=== PATIENT | male | born 1965 ===

== ENCOUNTER 2020-11-24 06:49 | Inpatient (IN) ==
--- NOTE | 2020-11-09 13:32 | PAT Medication Instructions ---
Medication Instructions Date of Service November 09, 2020 Home Medications Medical Thc 1 dose INHALATION UD albuterol sulfate 1 inh INHALATION QID PRN atorvastatin 40 mg PO HS bupropion HCl 200 mg PO QAM famotidine [Pepcid] 20 mg PO BID fluticasone propion-salmeterol [Advair Diskus] 1 inh INHALATION QAM hydroxyzine HCl [Atarax] 50 mg PO DAILY PRN lisinopril-hydrochlorothiazide 1 tab PO QAM magnesium oxide 400 mg PO QAM metoprolol tartrate 25 mg PO BID pantoprazole [Protonix] 40 mg PO BID potassium chloride 20 meq PO QAM ranolazine [Ranexa] 500 mg PO BID sertraline [Zoloft] 100 mg PO QAM tiotropium bromide [Spiriva with HandiHaler] 1 cap INHALATION QAM DO NOT take the morning of surgery hydroxyzine HCl [Atarax] 50 mg PO DAILY PRN lisinopril-hydrochlorothiazide 1 tab PO QAM magnesium oxide 400 mg PO QAM potassium chloride 20 meq PO QAM Medical Thc 1 dose INHALATION UD Take morning of surgery With a small sip of water, OTHERWISE NOTHING TO EAT OR DRINK AFTER MIDNIGHT: albuterol sulfate 1 inh INHALATION QID PRN (use if needed; please bring rescue inhaler with you to hospital day of surgery if possible) bupropion HCl 200 mg PO QAM famotidine [Pepcid] 20 mg PO BID fluticasone propion-salmeterol [Advair Diskus] 1 inh INHALATION QAM metoprolol tartrate 25 mg PO BID pantoprazole [Protonix] 40 mg PO BID ranolazine [Ranexa] 500 mg PO BID sertraline [Zoloft] 100 mg PO QAM tiotropium bromide [Spiriva with HandiHaler] 1 cap INHALATION QAM Take evening before surgery albuterol sulfate 1 inh INHALATION QID PRN (if needed) atorvastatin 40 mg PO HS famotidine [Pepcid] 20 mg PO BID hydroxyzine HCl [Atarax] 50 mg PO DAILY PRN (if needed) metoprolol tartrate 25 mg PO BID pantoprazole [Protonix] 40 mg PO BID ranolazine [Ranexa] 500 mg PO BID Other Notes If you have any questions please call us at [phone] or [phone] or [phone] or [phone]
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
[~2020-11-24 06:49] MED LIST: ACETAMINOPHEN 500 MG TAB PO SCH; CeleBREX 200 MG CAP PO SCH; GABAPENTIN 600 MG DOSE PO SCH; LR 15ML/HR IV SCH; ceFAZolin 2000MG 2,000 MG/15 ML SYR IV SCH
[2020-11-24] MEDS ORDERED: NEOSTIGMINE METHYLSULFATE 1 MG/ML 10ML VIAL ONE (07:05)
[2020-11-24] MEDS ORDERED: MIDAZOLAM HCL 1 MG/ML 2ML VIAL ONE (07:05)
[2020-11-24] MEDS ORDERED: fentaNYL citrate 100 MCG/2 ML VIAL ONE (07:05)
[2020-11-24] MEDS ORDERED: LIDOCAINE 2% 2 ML VIAL/AMP(20MG/ML) INFIL ONE (07:05)
[2020-11-24] MEDS ORDERED: GLYCOPYRROLATE 0.2 MG/ML VIAL ONE (07:05)
[2020-11-24] MEDS ORDERED: PROPOFOL IV EMULSION 10 MG/ML 20 ML VIAL IV ONE (07:05)
[2020-11-24] MEDS ORDERED: ONDANSETRON INJ 2 MG/ML 2 ML VIAL ONE (07:05)
[2020-11-24] MEDS ORDERED: DEXAMETHASONE SOD INJ 4 MG/ML VIAL ONE (07:05)
[2020-11-24] MEDS ORDERED: SUGAMMADEX SODIUM 200 MG/2 ML VIAL IV ONE (07:14)
[2020-11-24] MEDS ORDERED: BUPIVACAINE/EPINEPHRINE 0.5% MPF 1:200,000 30 ML VIAL ONE (07:16)
--- NOTE | 2020-11-24 07:32 | History & Physical Bridge Note ---
Date of Service November 24, 2020 History & Physical Bridge Note I have examined the patient, reviewed the History & Physical and in the interval since the performance of the History & Physical I have noted the following changes of clinical significance: no changes noted
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
[2020-11-24] MEDS ORDERED: HYDROmorphone INJ 2 MG/ML SYR/VIAL IV PRN (07:46)
[2020-11-24] MEDS ORDERED: PROMETHAZINE HCL 12.5 MG in SODIUM CHLORIDE 0.9% 50 ML IV PRN ×2 (07:46→12:15)
[2020-11-24] MEDS ORDERED: ATROPINE SULFATE 0.1 MG/ML 10ML SYR IV PRN (07:46)
[2020-11-24] MEDS ORDERED: ePHEDrine sulfate 50 MG/ML AMP IV PRN (07:46)
[2020-11-24] MEDS ORDERED: ONDANSETRON INJ 2 MG/ML 2 ML VIAL IV PRN ×2 (07:46→12:15)
[2020-11-24] MEDS ORDERED: HYDROmorphone INJ 2 MG/ML SYR/VIAL ONE (08:13)
[2020-11-24] MEDS ORDERED: ePHEDrine sulfate 50 MG/ML SYR ONE (09:15)
[2020-11-24] MEDS ORDERED: ALBUMIN HUMAN 5% 12.5 GM/250 ML VIAL IV ONE (09:15)
[2020-11-24] MEDS ORDERED: FLOSEAL HEMOSTATIC MATRIX 10ML TOP ONE (10:35)
--- NOTE | 2020-11-24 10:45 | Operative Report ---
Post Operative Report Pre & Post Diagnosis Operation Date: 11/24/20 07:30 Pre-Op Diagnosis: Neurogenic Claudication due to Lumbar Spinal Stenosis Post-Op Diagnosis: Neurogenic Claudication due to Lumbar Spinal Stenosis I identified the patient and participated in the time-out.: Yes Procedure Operation Date: 11/24/20 07:30 Actual Procedures #1 lumbar decompression with bilateral medial facetectomies and foraminotomies L2-3, L3-4, L4-5 L5-S1. #2 posterior spinal fusion L2-3, L3-4, L4-5 and L5-S1. #3 placement posterior segmental instrumentation L2-S1 including a cross-link. #4 interbody fusion L4-L5. #5 placement peek cage 11 x 26 mm at L4-5 per #6 placement locally harvested morselized autograft in the posterior gutters. #7 placement of infuse collagen sponge, master graft in the posterior lateral gutters and I factor in the interbody space. Surgeon Silvio Joseph, DO Regulatory Affairs Portfolio Leader Monika Voss Estimated Blood Loss 1,150 Findings See Below Patient had an EBL of well over 600 cc creating significant technical difficulty throughout our decompression as he did stop far from severe spinal stenosis and multiple adhesions to the dura. This did at least 50% increase to the operative time. Specimens None Indications This is a 55 male who presents with above-mentioned diagnosis after failing course of nonoperative care is here for the above-mentioned procedure. Description of Procedure Patient met with identified informed consent obtained. Patient was then taken to the operative suite underwent ablation placed in a prone position the [place] table top Wilver frame. All bony prominences well-padded eyes inspected to ensure no external pressure placed upon the. This point the lumbar spine was prepped and draped in a sterile fashion. Sharp dissection with the assistance of Bovie cautery performed down to and exposing the lamina transverse processes of L2-L3-L4 L5 and sacral ala bilaterally. From caudal to cephalad fashion complete laminectomy of L5 L4 L3 and 2 was performed including bilateral medial facetectomies and foraminotomies addressing severe spinal stenosis. Pedicle screws were then placed in L2 L3-L4-L5 and S1 levels bilaterally with assistance of fluoroscopy the purposes mar yjane placed. By way of a transforaminal portion left complete discectomy of L4-L5 was performed endplates curetted to subcortical being bone and an 11 x 26 mm peek cage filled with I factor tapped in position. The rods were then locked in final position bilaterally. A cross-link locked into position bilaterally. The transverse processes of L2 L3-L4-L5 and sacral ala burred to subcortical bleeding bone. Infuse collagen sponge master graft local autograft was placed in the posterior gutters. 15 round ELIF drain inserted. The incision was then closed with 1 Vicryl to fascia 2-0 Vicryl subcutaneously and 4 Monocryl for final skin closure. Steri-Strip sterile dressings placed. Patient will continue PACU stable condition. Please note spinal cord monitoring was utilized at the procedure no changes noted. Lastly Monika Voss was present at the entire surgery involved the patient positioning complex portions of the surgery and final skin closure. I attest to the content of the Intraoperative Record and any orders documented therein. Any exceptions are noted below.
[2020-11-24] MEDS ORDERED: ALBUTEROL HFA INHALER 8.5 GM ONE (10:49)
[2020-11-24] MEDS ORDERED: ROCURONIUM BROMIDE 10 MG/ML 5 ML VIAL IV ONE (10:50)
--- NOTE | 2020-11-24 11:14 | Fluoroscopy Report ---
FL lumbar spine 2-3V CLINICAL HISTORY: L2-S1 Decompression/Fusion COMPARISON STUDY: None FLUOROSCOPY TIME: 32 seconds. NUMBER OF FLUOROSCOPIC IMAGES: 4 FINDINGS: Intraoperative fluoroscopy images presented for review shows multiple metallic screws and fixating pl ates within within L2-S1 level. Disc spacer is seen at L4-L5 level. IMPRESSION: As above ACT 112: Negative or not required by law. The above report was generated using voice recognition software. It may contain grammatical, syntax o r spelling errors. Electronically signed by: Tarah Barber DO 11/24/2020 11:12 AM
[2020-11-24] MEDS: fentaNYL citrate 100 MCG/2 ML VIAL IV PRN ×4 (11:16→11:31)
[2020-11-24] MEDS ORDERED: DO NOT ADMINISTER FLU VACCINE PRN (12:15)
[2020-11-24] MEDS ORDERED: LORazepam 0.5 MG TAB PO PRN (12:15)
[2020-11-24] MEDS ORDERED: MAGNESIUM HYDROXIDE SUSP 30 ML UDC PO PRN (12:15)
[2020-11-24] MEDS ORDERED: NALOXONE HCL 0.4 MG/1 ML VIAL/CARP IV PRN (12:15)
[2020-11-24] MEDS ORDERED: SOD PHOSPHATE/SOD BIPHOSPHATE ENEMA 132 ML BTL PR PRN (12:15)
[2020-11-24] MEDS ORDERED: hydrOXYzine HCl 25 MG TAB PO PRN ×2 (12:15)
[2020-11-24] MEDS ORDERED: LORazepam 0.5 MG/1 ML VIAL IV PRN (12:15)
[2020-11-24] MEDS ORDERED: ALUMINUM/MAGNESIUM SUSP 30 ML UDC PO PRN (12:15)
[2020-11-24] MEDS ORDERED: diphenhydrAMINE Capsule 25 MG CAP PO PRN (12:15)
[2020-11-24] MEDS ORDERED: DO NOT ADMINISTER PNEUMOCOCCAL VACCINE PRN (12:15)
[2020-11-24] MEDS ORDERED: ONDANSETRON 4 MG OD TAB PO PRN (12:15)
[2020-11-24] MEDS ORDERED: FAMOTIDINE 20 MG TAB PO PRN (12:15)
[2020-11-24] MEDS ORDERED: METOCLOPRAMIDE HCL INJ 5 MG/ML 2 ML VIAL IV PRN (12:15)
[2020-11-24] MEDS ORDERED: traMADol HCL 50 MG TABLET PO PRN (12:15)
[2020-11-24] MEDS ORDERED: ACETAMINOPHEN 1,000 MG/100 ML VIAL IV PRN (12:15)
[2020-11-24] MEDS ORDERED: ALBUTEROL HFA 8 GM INHALER INH PRN (12:15)
[2020-11-24] MEDS ORDERED: HYDROmorphone INJ 0.5 MG/0.5 ML SYR IV PRN (12:15)
--- NOTE | 2020-11-24 12:33 | Anesthesiology Progress Note ---
Date of Service November 24, 2020 Anesthesia Post Procedure Vital Signs Vital Signs: Temp Pulse Pulse Resp BP Pulse Ox 11/24/20 11:45 36.1 C L 68 18 98/58 L 95 11/24/20 11:35 63 17 117/69 100 11/24/20 11:25 58 L 20 107/70 99 11/24/20 11:15 64 20 117/73 100 11/24/20 11:05 36.1 C L 68 16 135/83 100 11/24/20 07:10 36.9 C 66 18 168/97 H 97 Pain Intensity Left Leg: Pain Intensity: 8 Back: Pain Intensity: 8 Transfer of Care Handoff Completed per policy Notes Mental Status: alert / awake / arousable and participated in evaluation Patient Amnestic to Procedure: Yes Nausea / Vomiting: adequately controlled Pain: adequately controlled Airway Patency, RR, SpO2: stable & adequate BP & HR: stable & adequate Hydration State: stable & adequate Anesthetic Complications: no major complications apparent and Pt Satisfied with anesthetic care
[2020-11-24] MEDS ORDERED: MEDICAL MARIJUANA INH SCH (13:15)
[2020-11-24] MEDS: SODIUM CHLORIDE 0.9% 1000ML 1,000 ML IV SCH ×2 (13:23→23:07)
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
[2020-11-24] MEDS: ceFAZolin 2000MG 2,000 MG/15 ML SYR IV SCH ×2 (16:48→23:07)
[2020-11-24] MEDS: NICOTINE 21 MG/24 HR TDSY TD SCH (16:48)
[2020-11-24] MEDS: oxyCODONE HCL IR 5 MG TAB (IMMEDIATE RELEASE) PO PRN (16:58)
[2020-11-24 16:59] LABS: Hematocrit (blood only) 27.6 % (42-52); Hemoglobin 9.3 g/dL (14.0-18.0); Mean Corpuscular Hemoglobin 33.1 pg (25-34); Mean Corpuscular Hgb Conc 33.7 g/dL (32-36); Mean Corpuscular Volume 98.2 fL (80-100); Mean Platelet Volume 8.3 fL (7.4-10.4); Platelet Count 173 K/uL (130-400); RDW Coefficient of Variation 15.4 % (11.5-14.5); RDW Standard Deviation 54.1 fL (36.4-46.3); Red Blood Count 2.81 M/uL (4.7-6.1); White Blood Count 8.63 K/uL (4.8-10.8)
[2020-11-24] MEDS: HYDROmorphone INJ 1 MG/ML SYRINGE IV PRN (19:59)
[2020-11-24] MEDS: DOCUSATE SODIUM/SENNA 50/8.6MG TAB PO SCH (21:27)
[2020-11-24] MEDS: ATORVASTATIN 40 MG TAB PO SCH (21:27)
[2020-11-24] MEDS: FAMOTIDINE 20 MG TAB PO SCH (21:27)
[2020-11-24] MEDS: PANTOprazole 40 MG TAB PO SCH (21:28)
[2020-11-24] MEDS: RANOLAZINE 500 MG ER TAB PO SCH (21:29)
[2020-11-24] MEDS: METOPROLOL TARTRATE 25 MG TAB PO SCH (21:29)
[2020-11-24] MEDS: ACETAMINOPHEN 500 MG TAB PO PRN (21:32)
[2020-11-25] MEDS: oxyCODONE HCL IR 5 MG TAB (IMMEDIATE RELEASE) PO PRN ×4 (03:14→20:41)
[2020-11-25] MEDS: POLYETHYLENE (MIRALAX) 17 GM PACK PO SCH ×4 (05:22→23:06)
[2020-11-25] MEDS: HYDROmorphone INJ 1 MG/ML SYRINGE IV PRN ×4 (05:22→19:19)
[2020-11-25 06:43] LABS: Hematocrit (blood only) 25.1 % (42-52); Hemoglobin 8.5 g/dL (14.0-18.0); Immature Granulocytes # (auto) 0.03 K/uL (0.00-0.02); Immature Granulocytes % (auto) 0.3 %; Lymphocytes # (auto) 0.55 K/uL (1.2-3.4); Lymphocytes % (auto) 5.2 %; Mean Corpuscular Hemoglobin 33.3 pg (25-34); Mean Corpuscular Hgb Conc 33.9 g/dL (32-36); Mean Corpuscular Volume 98.4 fL (80-100); Mean Platelet Volume 8.6 fL (7.4-10.4); Monocytes # (auto) 0.77 K/uL (0.11-0.59); Monocytes % (auto) 7.3 %; Neutrophils # (auto) 9.13 K/uL (1.4-6.5); Neutrophils % (auto) 87.2 %; Platelet Count 211 K/uL (130-400); RDW Coefficient of Variation 15.4 % (11.5-14.5); RDW Standard Deviation 55.3 fL (36.4-46.3); Red Blood Count 2.55 M/uL (4.7-6.1); White Blood Count 10.48 K/uL (4.8-10.8)
[2020-11-25 07:26] LABS: BUN Creatinine Ratio 12.1 (10-20); Calcium 7.8 mg/dl (8.5-10.1); Creatinine Clr Calc Pharmacy 76.1 ml/min; Est GFR (African American) 82.3 ml/min; Potassium 4.3 mmol/L (3.5-5.1)
[2020-11-25] MEDS: ACETAMINOPHEN 500 MG TAB PO PRN (07:35)
--- NOTE | 2020-11-25 08:51 | Hospitalist Progress Note ---
Date of Service November 25, 2020 Assessment & Plan (1) Neurogenic claudication due to lumbar spinal stenosis: Status post L2-S1 lumbar decompression fusion by Dr. Joseph, POD #1 EBL 1150 mL, ELIF drain 715 mL Tolerated procedure well Pain/wound management per orthopedics Activity and therapy as prescribed orthopedics Encourage incentive spirometry Monitor hemoglobin with significant blood loss, preop 11.8 Acute Blood loss anemia on chronic anemia anticipated in setting of surgery hgb 11.8 --> 8.5 given hx of CAD would transfuse if hgb < 8 or becomes symptomatic repeat hgb this afternoon @ 1600 as ELIF drain still putting out decent output Hypocalcemia on bmp ca 7.8, need albumin to determine correction will add albumin and ionized ca to 1600 labs Elevated fasting glucose likely in setting of post op state pre op bsg WNL add a1c in a.m. (2) CAD (coronary artery disease): No chest pain or shortness of breath, follows up with cardiology History of left circumflex and RADHA in 2012 On metoprolol, Ranexa, statin, lisinopril Per patient's cardiology notes he is also to be on aspirin, patient currently states he is not taking aspirin due to pill burden recommend resuming ASA when okay with Dr. Joseph (3) Chronic anemia: hgb 11.8 likely 2/2 chronic disease acute blood loss as above (4) Hypertension: BP on lower side continue hold lisinopril/HCTZ continue metoprolol as parameters allow monitor closely (5) Chronic obstructive pulmonary disease: tobacco abuse continue advair ( breo substituted) encourage incentive spirometry nicotine patch ordered (6) Sleep apnea: CPAP @ HS, [id number], pt brought home cpap Dispo: per primary PCP: Dr. Partida FULL CODE Pt was seen and examined in collaboration with Dr. Jose, please see addendum Thank you for this consultation. We will follow the patient with you during their hospital stay. You can reach a member of the [facility] Hospitalist Team 12/12 via hospitalist role on tiger text. Admission and Anticipated Discharge Date Admission Date: November 24, 2020 Supervising Physician Co-Signing Physician Notes Attending addendum The patient was seen and examined in medical floor He complains to pain at the back and has more drainage in the ELIF drain Denies any chest pain and/or palpitation, denies any shortness of breath On examination Sitting on a chair without any apparent distress Hemodynamically stable Chest-clear to auscultate bilaterally Heart-S1-S2, regular Abdomen-benign Extremities-trace edema bilaterally His labs reviewed Has acute blood loss anemia secondary to surgery We will monitor H&H and advised blood transfusion if hemoglobin drops below 8 given CAD status Agree with assessment and plan as outlined above by VALERIE Barnett Dr Subjective Patient was seen and examined in room 311. Follow-up lumbar decompression fusion and chronic anemia. "I am sore." Complains of incisional tenderness. Also complains of numbness to tips of toes. He denies any lightheadedness, dizziness, chest pain, shortness breath, cough, nausea, vomiting, abdominal pain. He has not yet passed flatus. Continues to have Adames catheter in place. He was up and sitting in chair for few hours last evening. Appetite is well. Review of Systems Review of Systems: All systems reviewed & are unremarkable except as noted in HPI & below Physical Exam Physical Exam: Gen: WD/WN, NAD, A&O x3 HEENT: Normocephalic, atraumatic, conjunctivae moist, sclerae anicteric, mucous membranes moist. Lung: Clear to Auscultation bilaterally, no wheezes/rales/rhonchi Heart: Regular rate, regular rhythm, no murmurs, rubs, or gallops Abdomen: Soft, NT, ND +BS x 4 Extremities: No edema, SCD/teds in place, lumbar dressing CDI, ELIF drain with serosanguineous drainage Skin: Warm, no rash, negative turgor. : Adames catheter with clear yellow urine Results & Data Results & Data ([facility]) Vital Signs (Past 12 Hours) Vital Signs Temp Pulse Pulse Resp BP BP Pulse Ox 11/25/20 07:40 36.4 C L 71 16 126/75 96 11/25/20 05:15 116/62 11/25/20 02:38 36.4 C L 67 16 102/65 93 11/24/20 22:50 36.7 C 56 L 16 94/60 L 94/47 L 93 11/24/20 21:21 59 L 96/55 L
[2020-11-25] MEDS ORDERED: LISINOPRIL/HCTZ 10/12.5MG TAB PO SCH ×2 (09:00)
[2020-11-25] MEDS: FAMOTIDINE 20 MG TAB PO SCH ×2 (09:07→20:41)
[2020-11-25] MEDS: MAGNESIUM OXIDE 400 MG TAB PO SCH (09:07)
[2020-11-25] MEDS: METOPROLOL TARTRATE 25 MG TAB PO SCH ×2 (09:07→23:06)
[2020-11-25] MEDS: SERTRALINE HCL 100 MG TABLET PO SCH (09:07)
[2020-11-25] MEDS: RANOLAZINE 500 MG ER TAB PO SCH ×2 (09:07→20:41)
[2020-11-25] MEDS: PANTOprazole 40 MG TAB PO SCH ×2 (09:07→20:41)
[2020-11-25] MEDS: POTASSIUM CHLORIDE CRTAB 20 MEQ TABCR PO SCH (09:08)
[2020-11-25] MEDS: FLUTICASONE/VILANTEROL 100/25MCG 14 PUFFS/INHALER INH SCH (09:08)
[2020-11-25] MEDS: UMECLIDINIUM BROMIDE 62.5MCG/BLISTER 7 PUFFS/INHALER INH SCH (09:08)
[2020-11-25] MEDS: buPROPion SR 100 MG TABCR PO SCH (09:08)
--- NOTE | 2020-11-25 10:21 | Orthopedic Progress Note ---
Date of Service November 25, 2020 Assessment & Plan (1) Neurogenic claudication due to lumbar spinal stenosis: Admission and Anticipated Discharge Date Admission Date: November 24, 2020 This time continue physical therapy monitor his ELIF operatively discharge home in the next few days. Subjective Back pain controlled leg symptoms markedly improved Physical Exam Physical Exam: Patient is in the chair at the bedside. Is good strength testing. Appears comfortable. Results & Data ([facility]) Vital Signs (Past 12 Hours) Vital Signs Temp Pulse Resp BP BP Pulse Ox 11/25/20 09:05 76 116/70 96 11/25/20 07:40 36.4 C L 71 16 126/75 96 11/25/20 05:15 116/62 11/25/20 02:38 36.4 C L 67 16 102/65 93 11/24/20 22:50 36.7 C 56 L 16 94/60 L 94/47 L 93
[2020-11-25 16:15] LABS: Hematocrit (blood only) 24.1 % (42-52); Hemoglobin 8.1 g/dL (14.0-18.0); Mean Corpuscular Hemoglobin 33.5 pg (25-34); Mean Corpuscular Hgb Conc 33.6 g/dL (32-36); Mean Corpuscular Volume 99.6 fL (80-100); Mean Platelet Volume 8.5 fL (7.4-10.4); Platelet Count 201 K/uL (130-400); RDW Coefficient of Variation 15.7 % (11.5-14.5); RDW Standard Deviation 56.6 fL (36.4-46.3); Red Blood Count 2.42 M/uL (4.7-6.1); White Blood Count 10.08 K/uL (4.8-10.8)
[2020-11-25] MEDS: NICOTINE 21 MG/24 HR TDSY TD SCH (17:40)
[2020-11-25] MEDS: ATORVASTATIN 40 MG TAB PO SCH (20:40)
[2020-11-25] MEDS: DOCUSATE SODIUM/SENNA 50/8.6MG TAB PO SCH (20:41)
[2020-11-26] MEDS: HYDROmorphone INJ 1 MG/ML SYRINGE IV PRN ×5 (04:49→20:33)
[2020-11-26] MEDS: POLYETHYLENE (MIRALAX) 17 GM PACK PO SCH ×3 (04:54→17:41)
[2020-11-26 05:52] LABS: Mean Corpuscular Hgb Conc 34.8 g/dL (32-36); Mean Corpuscular Volume 97.9 fL (80-100); Mean Platelet Volume 8.2 fL (7.4-10.4); Platelet Count 161 K/uL (130-400); RDW Standard Deviation 56.5 fL (36.4-46.3); Red Blood Count 2.35 M/uL (4.7-6.1)
[2020-11-26 06:24] LABS: Albumin Level 2.8 gm/dl (3.4-5.0); BUN Creatinine Ratio 16.9 (10-20); Calcium 8.1 mg/dl (8.5-10.1); Creatinine Clr Calc Pharmacy 92.3 ml/min; Est GFR (African American) 103.9 ml/min; Est GFR (Non-African American) 89.6 ml/min; Potassium 4.3 mmol/L (3.5-5.1)
[2020-11-26 06:32] LABS: Albumin Globulin Ratio 1.1 (0.9-2); Bilirubin,Total 0.5 mg/dl (0.2-1); Globulin 2.6 gm/dl (2.5-4.0); Prealbumin 16.7 mg/dl (20-40); Total Protein 5.4 gm/dl (6.4-8.2)
[2020-11-26 07:12] LABS: Estimated Average Glucose 108 mg/dl; Hemoglobin A1C 5.4 % (4.5-5.6)
[2020-11-26] MEDS: oxyCODONE HCL IR 5 MG TAB (IMMEDIATE RELEASE) PO PRN ×4 (07:27→23:14)
[2020-11-26] MEDS ORDERED: bisacodyL 10 MG SUPP PR PRN (08:00)
--- NOTE | 2020-11-26 08:39 | Orthopedic Progress Note ---
Date of Service November 26, 2020 Assessment & Plan (1) Neurogenic claudication due to lumbar spinal stenosis: Admission and Anticipated Discharge Date Admission Date: November 24, 2020 At this time continue physical therapy monitor his ELIF output anticipate discharge home tomorrow. Subjective Patient's back pain is controlled leg symptoms markedly improved. Denies any shortness of breath or sensation of weakness. I have discussed with him his low hematocrit. Physical Exam Physical Exam: Exam is good strength testing is comfortable. Results & Data ([facility]) Vital Signs (Past 12 Hours) Vital Signs Temp Pulse Pulse Resp BP Pulse Ox 11/26/20 07:16 36.6 C 66 18 107/65 96 11/25/20 23:05 72 105/63 11/25/20 22:06 37.1 C 71 16 97/56 L 95
[2020-11-26] MEDS: FERROUS SULFATE 325 MG TAB PO SCH (09:29)
[2020-11-26] MEDS: METOPROLOL TARTRATE 25 MG TAB PO SCH ×2 (09:29→20:29)
[2020-11-26] MEDS: UMECLIDINIUM BROMIDE 62.5MCG/BLISTER 7 PUFFS/INHALER INH SCH (09:30)
[2020-11-26] MEDS: FLUTICASONE/VILANTEROL 100/25MCG 14 PUFFS/INHALER INH SCH (09:30)
[2020-11-26] MEDS: buPROPion SR 100 MG TABCR PO SCH (09:31)
[2020-11-26] MEDS: FAMOTIDINE 20 MG TAB PO SCH ×2 (09:31→20:28)
[2020-11-26] MEDS: POTASSIUM CHLORIDE CRTAB 20 MEQ TABCR PO SCH (09:31)
[2020-11-26] MEDS: MAGNESIUM OXIDE 400 MG TAB PO SCH (09:31)
[2020-11-26] MEDS: PANTOprazole 40 MG TAB PO SCH ×2 (09:31→20:29)
[2020-11-26] MEDS: RANOLAZINE 500 MG ER TAB PO SCH ×2 (09:31→20:28)
[2020-11-26] MEDS: dexAMETHasone 8 MG in SYRINGE 0 ML IV SCH (09:32)
[2020-11-26] MEDS: SERTRALINE HCL 100 MG TABLET PO SCH (09:32)
--- NOTE | 2020-11-26 13:03 | Hospitalist Progress Note ---
Date of Service November 26, 2020 Assessment & Plan (1) Neurogenic claudication due to lumbar spinal stenosis: Status post L2-S1 lumbar decompression fusion by Dr. Joseph, POD #1 EBL 1150 mL, ELIF drain 715 mL Tolerated procedure well Pain/wound management per orthopedics Activity and therapy as prescribed orthopedics Encourage incentive spirometry Monitor hemoglobin with significant blood loss, preop 11.8 Acute Blood loss anemia on chronic anemia anticipated in setting of surgery hgb 11.8 --> 8.5 given hx of CAD would transfuse if hgb < 8 or becomes symptomatic Hemoglobin remains at 8.0 as of this morning We will check it again tomorrow and will not transfuse if it is not less than 8 Hypocalcemia on bmp ca 7.8, need albumin to determine correction Ionized calcium was normal Elevated fasting glucose likely in setting of post op state pre op bsg WNL add a1c in a.m.-normal at 5.4 (2) CAD (coronary artery disease): No chest pain or shortness of breath, follows up with cardiology History of left circumflex and RADHA in 2012 On metoprolol, Ranexa, statin, lisinopril Per patient's cardiology notes he is also to be on aspirin, patient currently states he is not taking aspirin due to pill burden recommend resuming ASA when okay with Dr. Joseph No acute cardiac symptoms (3) Chronic anemia: hgb 11.8 likely 2/2 chronic disease acute blood loss as above (4) Hypertension: BP on lower side continue hold lisinopril/HCTZ continue metoprolol as parameters allow monitor closely (5) Chronic obstructive pulmonary disease: tobacco abuse continue advair ( breo substituted) encourage incentive spirometry nicotine patch ordered (6) Sleep apnea: CPAP @ HS, [id number], pt brought home cpap Dispo: per primary PCP: Dr. Partida FULL CODE Pt was seen and examined in collaboration with Dr. Jose, please see addendum Thank you for this consultation. We will follow the patient with you during their hospital stay. You can reach a member of the [facility] Hospitalist Team 12/12 via hospitalist role on tiger text. Admission and Anticipated Discharge Date Admission Date: November 24, 2020 Subjective 11-26-2020 The patient was seen and examined in medical floor Still complains to have some back pain and the ELIF drain has not been removed yet Has been getting physical therapy and plans for discharge tomorrow Review of Systems Review of Systems: All systems reviewed and are unremarkable except as noted below Musculoskeletal: + back pain Physical Exam Physical Exam: Gen: WD/WN, NAD, A&O x3 HEENT: Normocephalic, atraumatic, conjunctivae moist, sclerae anicteric, mucous membranes moist. Lung: Clear to Auscultation bilaterally, no wheezes/rales/rhonchi Heart: Regular rate, regular rhythm, no murmurs, rubs, or gallops Abdomen: Soft, NT, ND +BS x 4 Extremities: No edema, SCD/teds in place, lumbar dressing CDI, ELIF drain with serosanguineous drainage Skin: Warm, no rash, negative turgor. : Adames catheter with clear yellow urine Musculoskeletal: Spine: + limited thoraco-lumbar ROM and + pain with thoraco- lumbar ROM Results & Data Results & Data ([facility]) Vital Signs (Past 12 Hours) Vital Signs Temp Pulse Resp BP Pulse Ox 11/26/20 07:16 36.6 C 66 18 107/65 96 Laboratory Results Short CBC 11/25/20 11/26/20 Range/Units 15:49 05:38 WBC 10.08 8.00 (4.8-10.8) K/uL Hgb 8.1 L 8.0 L (14.0-18.0) g/dL Hct 24.1 L 23.0 L (42-52) % Plt Count 201 161 (130-400) K/uL BMP 11/26/20 05:38 Sodium 137 Potassium 4.3 Chloride 105 Carbon Dioxide 33 H BUN 16 Creatinine 0.94 Glucose 114 H Calcium 8.1 L Liver Function 11/25/20 11/26/20 Range/Units 15:49 05:38 Total Bilirubin 0.5 (0.2-1) mg/dl AST 22 (15-37) U/L ALT 16 (12-78) U/L Alkaline Phosphatase 75 (45-117) U/L Albumin 2.9 L 2.8 L (3.4-5.0) gm/dl Medications Administered Current Inpatient Medications Acetaminophen (Acetaminophen 500 Mg Tab) 1,000 mg PO Q8H PRN PRN Reason: MILD Pain Scale 1,2,3 & Pre PT Stop: 12/24/20 12:14 Last Admin: 11/25/20 07:35 Dose: 1,000 mg Documented by: Al Hydrox/Mg Hydrox/Simethicone (Aluminum/Magnesium Susp 30 Ml Udc) 30 ml PO Q6H PRN PRN Reason: Dyspepsia Stop: 12/24/20 12:14 Albuterol (Albuterol Hfa 8 Gm Inhaler) 1 puffs INH QID PRN PRN Reason: sob Stop: 12/24/20 12:14 Atorvastatin Calcium (Atorvastatin 40 Mg Tab) 40 mg PO HS SAM Stop: 12/24/20 20:59 Last Admin: 11/25/20 20:40 Dose: 40 mg Documented by: Bisacodyl (Bisacodyl 10 Mg Supp) 10 mg [place] DAILY PRN PRN Reason: Constipation Stop: 12/26/20 07:59 Bupropion HCl (Bupropion Sr 100 Mg Tabcr) 200 mg PO QAM [facility] Stop: 12/25/20 08:59 Last Admin: 11/26/20 09:31 Dose: 200 mg Documented by: Diphenhydramine HCl (Diphenhydramine Capsule 25 Mg Cap) 25 mg PO Q6H PRN PRN Reason: Allergic Rhinitis/Insomnia Stop: 12/24/20 12:14 Famotidine (Famotidine 20 Mg Tab) 20 mg PO BID [facility] Stop: 12/24/20 20:59 Last Admin: 11/26/20 09:31 Dose: 20 mg Documented by: Famotidine (Famotidine 20 Mg Tab) 20 mg PO Q12H PRN PRN Reason: Dyspepsia Stop: 12/24/20 12:14 Ferrous Sulfate (Ferrous Sulfate 325 Mg Tab) 325 mg PO QAM [facility] Stop: 12/26/20 08:59 Last Admin: 11/26/20 09:29 Dose: 325 mg Documented by: Fluticasone/Vilanterol (Fluticasone/Vilanterol 100/25mcg 14 Puffs/Inhaler) 1 puffs INH DAILY [facility] Stop: 12/25/20 08:59 Last Admin: 11/26/20 09:30 Dose: 1 puffs Documented by: Lisinopril/HCTZ (Lisinopril/Hctz 10/12.5mg Tab) 0.5 tab PO QAM [facility] Stop: 12/25/20 08:59 Hydromorphone HCl (Hydromorphone Inj 0.5 Mg/0.5 Ml Syr) 0.5 mg IV Q3H PRN PRN Reason: MOD pain (scale 4-6) & Pre PT Stop: 12/08/20 12:14 Hydromorphone HCl (Hydromorphone Inj 1 Mg/Ml Syringe) 1 mg IV Q3H PRN PRN Reason: severe pain (scale 7-10) Stop: 12/08/20 12:14 Last Admin: 11/26/20 09:29 Dose: 1 mg Documented by: Hydroxyzine HCl (Hydroxyzine Hcl 25 Mg Tab) 25 mg PO Q8H PRN PRN Reason: Anxiety Stop: 12/24/20 12:14 Promethazine HCl 12.5 mg/ (Sodium Chloride) 50.5 mls @ 202 mls/hr IV Q6H PRN PRN Reason: Nausea &/or Vomiting Stop: 12/24/20 12:14 Lorazepam (Ativan) 0.5 mg in 1 mls @ 1 mls/min IV Q8H PRN PRN Reason: Sedation/Anxiety Stop: 12/24/20 12:14 Dexamethasone 8 mg/ Syringe 2 mls @ 1 mls/min IV DAILY SAM Stop: 12/26/20 08:59 Last Admin: 11/26/20 09:32 Dose: 1 mls/min Documented by: Influenza Virus Vaccine Quadrival (Do Not Administer Flu Vaccine) 1 ea N/A PRN PRN PRN Reason: Notification Stop: 12/24/20 12:14 Lorazepam (Lorazepam 0.5 Mg Tab) 0.5 mg PO Q8H PRN PRN Reason: sedation/anxiety Stop: 12/24/20 12:14 Magnesium Hydroxide (Magnesium Hydroxide Susp 30 Ml Udc) 30 ml PO Q24H PRN PRN Reason: Constipation Stop: 12/24/20 12:14 Magnesium Oxide (Magnesium Oxide 400 Mg Tab) [facility] [place]: 12/25/20 08:59 Last Admin: 11/26/20 09:31 Dose: 400 mg Documented by: Metoclopramide HCl (Metoclopramide Hcl Inj 5 Mg/Ml 2 Ml Vial) 10 mg IV Q6H PRN PRN Reason: Nausea &/or Vomiting Stop: 12/24/20 12:14 Metoprolol Tartrate (Metoprolol Tartrate 25 Mg Tab) 25 mg PO BID [facility] Stop: 12/24/20 20:59 Last Admin: 11/26/20 09:29 Dose: 25 mg Documented by: Miscellaneous (Remove Nicoderm Patch) 1 ea N/A DAILY@1659 [facility] Stop: 12/25/20 16:58 Last Admin: 11/25/20 17:39 Dose: 1 ea Documented by: Miscellaneous Medication (Medical Marijuana) 1 dose INH UD [facility] Stop: 12/24/20 13:14 Naloxone HCl (Naloxone Hcl 0.4 Mg/1 Ml Vial/Carp) 0.1 mg IV Q5M PRN PRN Reason: Oversedation/respiratory dep Stop: 12/24/20 12:14 Nicotine (Nicotine 21 Mg/24 Hr Tdsy) 21 mg TD DAILY@1700 [facility] Stop: 12/24/20 16:59 Last Admin: 11/25/20 17:40 Dose: 21 mg Documented by: Ondansetron HCl (Ondansetron Inj 2 Mg/Ml 2 Ml Vial) 4 mg IV Q6H PRN PRN Reason: Nausea &/or Vomiting Stop: 12/24/20 12:14 Ondansetron HCl (Ondansetron 4 Mg Od Tab) 4 mg PO Q6H PRN PRN Reason: Nausea Stop: 12/24/20 12:14 Oxycodone HCl (Oxycodone Hcl Ir 5 Mg Tab (Immediate Release)) 5 - 10 mg PO Q4H PRN PRN Reason: Pain & Pre PT Stop: 12/08/20 12:14 Last Admin: 11/26/20 12:26 Dose: 10 mg Documented by: Pantoprazole Sodium (Pantoprazole 40 Mg Tab) 40 mg PO BID [facility] Stop: 12/24/20 20:59 Last Admin: 11/26/20 09:31 Dose: 40 mg Documented by: Pneumococcal Polyvalent Vaccine (Do Not Administer Pneumococcal Vaccine) 1 ea N/A PRN PRN PRN Reason: Notification Stop: 12/24/20 12:14 Polyethylene Glycol (Polyethylene (Miralax) 17 Gm Pack) 17 gm PO Q6 [facility] Stop: 12/25/20 05:59 Last Admin: 11/26/20 12:26 Dose: 17 gm Documented by: Potassium Chloride (Potassium Chloride Crtab 20 Meq Tabcr) 20 meq PO QAM [facility] Stop: 12/25/20 08:59 Last Admin: 11/26/20 09:31 Dose: 20 meq Documented by: Ranolazine (Ranolazine 500 Mg Er Tab) 500 mg PO BID [facility] Stop: 12/24/20 20:59 Last Admin: 11/26/20 09:31 Dose: 500 mg Documented by: Senna/Docusate Sodium (Docusate Sodium/Senna 50/8.6mg Tab) 2 tab PO HS [facility] Stop: 12/24/20 20:59 Last Admin: 11/25/20 20:41 Dose: 2 tab Documented by: Sertraline HCl (Sertraline Hcl 100 Mg Tablet) 100 mg PO QAM [facility] Stop: 12/25/20 08:59 Last Admin: 11/26/20 09:32 Dose: 100 mg Documented by: Sodium Biphosphate/Sodium Phosphate (Sod Phosphate/Sod Biphosphate Enema 132 Ml Btl) 132 ml [place] ONE PRN PRN Reason: Constipation Stop: 12/24/20 12:14 Tramadol HCl (Tramadol Hcl 50 Mg Tablet) 50 - 100 mg PO Q4H PRN PRN Reason: Moderate-Severe pain & Pre PT Stop: 12/24/20 12:14 Umeclidinium [place] (Umeclidinium [place] 62.5mcg/Blister 7 Puffs/Inhaler) 1 puffs INH QAM [facility] Stop: 12/25/20 08:59 Last Admin: 11/26/20 09:30 Dose: 1 puffs Documented by:
[2020-11-26] MEDS: NICOTINE 21 MG/24 HR TDSY TD SCH (16:48)
[2020-11-26] MEDS: DOCUSATE SODIUM/SENNA 50/8.6MG TAB PO SCH (20:28)
[2020-11-26] MEDS: ATORVASTATIN 40 MG TAB PO SCH (20:29)
[2020-11-27] MEDS: POLYETHYLENE (MIRALAX) 17 GM PACK PO SCH ×2 (00:32→05:25)
[2020-11-27] MEDS: HYDROmorphone INJ 1 MG/ML SYRINGE IV PRN ×2 (00:35→05:24)
[2020-11-27] MEDS: dexAMETHasone 8 MG in SYRINGE 0 ML IV SCH (07:33)
[2020-11-27] MEDS: oxyCODONE HCL IR 5 MG TAB (IMMEDIATE RELEASE) PO PRN ×3 (07:33→17:59)
[2020-11-27] MEDS: UMECLIDINIUM BROMIDE 62.5MCG/BLISTER 7 PUFFS/INHALER INH SCH (07:34)
[2020-11-27] MEDS: METOPROLOL TARTRATE 25 MG TAB PO SCH (07:34)
[2020-11-27] MEDS: FLUTICASONE/VILANTEROL 100/25MCG 14 PUFFS/INHALER INH SCH (07:34)
[2020-11-27] MEDS: FAMOTIDINE 20 MG TAB PO SCH (07:35)
[2020-11-27] MEDS: SERTRALINE HCL 100 MG TABLET PO SCH (07:35)
[2020-11-27] MEDS: POTASSIUM CHLORIDE CRTAB 20 MEQ TABCR PO SCH (07:35)
[2020-11-27] MEDS: buPROPion SR 100 MG TABCR PO SCH (07:35)
[2020-11-27] MEDS: RANOLAZINE 500 MG ER TAB PO SCH (07:36)
[2020-11-27] MEDS: FERROUS SULFATE 325 MG TAB PO SCH (07:37)
[2020-11-27] MEDS: MAGNESIUM OXIDE 400 MG TAB PO SCH (07:37)
[2020-11-27] MEDS: PANTOprazole 40 MG TAB PO SCH (07:37)
[2020-11-27 07:56] LABS: Hemoglobin 8.2 g/dL (14.0-18.0); Immature Granulocytes # (auto) 0.03 K/uL (0.00-0.02); Immature Granulocytes % (auto) 0.3 %; Lymphocytes # (auto) 0.89 K/uL (1.2-3.4); Lymphocytes % (auto) 8.5 %; Mean Corpuscular Hemoglobin 33.5 pg (25-34); Mean Corpuscular Hgb Conc 34.2 g/dL (32-36); Mean Platelet Volume 8.5 fL (7.4-10.4); Monocytes # (auto) 0.76 K/uL (0.11-0.59); Monocytes % (auto) 7.3 %; Neutrophils # (auto) 8.73 K/uL (1.4-6.5); Neutrophils % (auto) 83.9 %; Platelet Count 182 K/uL (130-400); RDW Coefficient of Variation 15.6 % (11.5-14.5); RDW Standard Deviation 54.6 fL (36.4-46.3); Red Blood Count 2.45 M/uL (4.7-6.1); White Blood Count 10.41 K/uL (4.8-10.8)
--- NOTE | 2020-11-27 09:24 | Discharge Summary ---
Date of Service November 27, 2020 Admission HPI Per Admitting Provider This is a 55-year-old male presents with chronic persistent back and bilateral leg pain. Failing extensive course of nonoperative care is here for surgical invention. Principal Diagnosis Lumbar spinal stenosis with neurogenic claudication Discharge Data Allergies Allergy/AdvReac Type Severity Reaction Status Date / Time No Known Allergies Allergy Verified 11/24/20 07:04 Consultations 11/24/20 12:15 Consult Hospitalist Routine Procedures Performed Operation Date: 11/24/20 07:30 Actual Procedures p L2-S1 Decompression Fusion with Insertion of Interbody, Application of Bone Morphogenetic Protein, Spinal Cord Monitoring(Not Applicable) - Silvio Joseph DO Ordered Studies 11/24/20 [place] lumbar spine 2-3V Routine Hospital Course (1) Neurogenic claudication due to lumbar spinal stenosis: Patient with multilevel lumbar decompression fusion trial exhausting orthopedic for possibly. Postop day 1 is up and ambulating Bruno postop day #2 and 3 ELIF drain decreasing probably. Pain well controlled. Strength improved. Subsequent discharge home. Discharge orders instructions from the chart for further review. Total Time Total Time Spent Total Time Spent (In Minutes): 20 minutes Discharge Plan Discharge Items Patient Disposition: Home - Home Health Services Reason For Visit: Spinal Stenosis, Lumbar Region with Neurogenic Cla Discharge Diagnosis: Lumbar spinal stenosis with neurogenic claudication Activity: As commented below Non-emergency contact: Primary Care Provider Call non-emergency contact if: you have any medication questions Follow-up/Referrals: Marty Villeda DO [Primary Care Provider] - Diet: Regular Addtl Attending Provider Instructions: ACTIVITY RECOMMENDATIONS: SELF CARE INSTRUCTIONS AFTER THORACIC/LUMBAR FUSIONS 1. You may walk to your tolerance. It is good exercise for your legs and back. Expect some back and intermittent leg aches and pains. 2. You may perform "counter-top" level activities (make a sandwich, eric with a project, etc.). 3. No bending or lifting of more than 10 pounds or back twisting of any nature (roll like a log when turning in bed). 4. You may ride in a car for 20-30 minutes at a time. No driving until after your first visit with your doctor. 5. Frequent changes of position and restricting sitting to 30 minutes at a time will help limit the amount of back spasms and stiffness you may experience. 6. You may discontinue the use of ambulatory aids (cane, crutches, etc.) once your strength and confidence allow. 7. 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 Do not take a tub bath, sit in a hot tub or go into a swimming pool until after your first recheck in the office. SPECIAL CARE INSTRUCTIONS: VERY IMPORTANT TO READ AND REVIEW A. Your surgical incision has been closed with a cosmetic suture under the skin that will dissolve in about 6 weeks. In 14 days, you can use a pair of clean scissors and cut the suture that is left outside of the skin at the ends of your incision. 1. The small skin tapes can be removed 7 days after surgery if they have not fallen off by that point. 2. You may keep the wound open to air as much as possible to promote healing after post-op day number 5 unless told otherwise by your doctor. 3. If you think the wound looks like it is becoming infected (redness or worsening drainage) and/or you are experiencing fever, chill or worsening back pain and muscle spasms, contact the office so that we may evaluate you as soon as possible. B. Complications are uncommon, but please contact us if you have any signs or symptoms of: 1. wound infection (fever higher than 102.5 degrees F, redness, separation of wound, drainage, or increasing pain from the incision) 2. blood clots in legs (pain, swelling, redness and warmth in legs) 3. urinary tract infection (fever higher than 102.5 degrees F, burning upon urination or increased frequency of urination) 4. nerve problems (inability to walk on your toes or heels, numbness, loss of bowel or bladder control) 5. any other symptoms that concern you C. Please call the office at if you have any concerns or questions about your operation or recovery. D. No smoking! Smoking drastically decreases the chance of a solid fusion. E. Do not take any anti-inflammatory medications (Indocin, Advil, Motrin, Aspirin, Naprosyn, etc.) as these may inhibit the chance of a solid fusion. Tylenol is okay to take for pain. MANAGING PAIN AFTER SPINAL SURGERY 1. Narcotic medication is intended for short-term use and will be provided for surgical pain. Surgical pain usually lasts for a period of 4-6 weeks. Narcotic medication includes Percocet, Vicodin, Darvocet, Tylenol #3 or Lortab. 2. Longer-term pain is more appropriately treated with non-narcotic medication such as Tylenol ES. 3. Muscle spasm is not appropriately treated with narcotics. Muscle relaxers such as Soma, Flexeril or Skelaxin can be used along with Tylenol ES. 4. Remember that we all live with some "aches and pains". This is not unusual or uncommon after an injury or as we get older. a. Back pain is expected and may include muscle spasms for 4 to 6 weeks after surgery. The pain should gradually improve. If the pain worsens for no apparent reason, please contact the office. b. Intermittent leg pain may also be experienced and should not be concerned about unless it worsens for no apparent reason. If so, please contact the office. 5. We will provide appropriate medication within the normal guidelines of their prescribed use. We will also be very cautious and aware of potential abuse and extended duration of patients' medication needs. a. Pain medications are for your comfort and to assist with sleep and rest so that the tissue can heal. They are not provided in order to return to normal activity and should not be used through the day. To do so or worsening pain at night can result from ongoing tissue damage and development of tolerance to the prescribed medicine. 6. Please allow 2-3 days to process refills. Prescriptions will not be mailed but must be picked up at the office. FOLLOW UP VISIT: Keep your scheduled follow-up appointment. Any questions, please call the office at . Pending Studies at Discharge: No Stand-Alone Forms: My [facility] [employer], Smoking Cessation Medications and DC Order Prescriptions: New oxycodone 5 mg tablet 5 mg PO Q6H PRN (Reason: pain, severe) Qty: 30 RF: 0 tramadol 50 mg tablet 50 mg PO Q6H PRN (Reason: pain, moderate) Qty: 30 RF: 0 Continued atorvastatin 40 mg Tablet 40 mg PO HS RF: 0 fluticasone propion-salmeterol [Advair Diskus] 250-50 mcg/dose Blister With Device 1 inh INHALATION QAM RF: 0 sertraline [Zoloft] 100 mg Tablet 100 mg PO QAM RF: 0 hydroxyzine HCl 50 mg Tablet 50 mg PO DAILY PRN (Reason: Anxiety) RF: 0 famotidine [Pepcid] 20 mg Tablet 20 mg PO BID RF: 0 pantoprazole [Protonix] 40 mg Tablet,Delayed Release (Dr/Ec) 40 mg PO BID RF: 0 lisinopril-hydrochlorothiazide 10-12.5 mg Tablet 0.5 tab PO QAM RF: 0 albuterol sulfate 90 mcg/actuation Hfa Aerosol Inhaler 1 inh INHALATION QID PRN (Reason: sob) RF: 0 bupropion HCl 200 mg Tablet Sustained-Release 12 Hr 200 mg PO DAILY RF: 0 metoprolol tartrate 25 mg Tablet 25 mg PO BID RF: 0 Spiriva with HandiHaler 18 mcg Capsule, W/Inhalation Device 1 cap INHALATION QAM RF: 0 ranolazine [Ranexa] 500 mg Tablet Extended Release 12 Hr 500 mg PO BID RF: 0 potassium chloride 20 mEq Tablet Extended Release 20 meq PO QAM RF: 0 magnesium oxide 400 mg magnesium Tablet 400 mg PO QAM RF: 0 Medical Thc 1 dose inhalation UD RF: 0 Discharge Orders: Discharge Order (Routine); Ordered 11/27/20 Ordered By: Silvio Joseph Admission Data Admit Date/Time: 11/24/20 11:23 Attending Provider: Silvio Joseph Admit Provider: Silvio Joseph Primary Care Provider: Marty Villeda Other Providers: Lucie Durant ; Abram Jose
--- NOTE | 2020-11-27 14:30 | Hospitalist Progress Note ---
Date of Service November 27, 2020 Assessment & Plan (1) Neurogenic claudication due to lumbar spinal stenosis: Status post L2-S1 lumbar decompression fusion by Dr. Joseph, POD #1 EBL 1150 mL, ELIF drain 715 mL Tolerated procedure well Will be discharged home by the primary team Pain/wound management per orthopedics Activity and therapy as prescribed orthopedics Encourage incentive spirometry Monitor hemoglobin with significant blood loss, preop 11.8 Acute Blood loss anemia on chronic anemia anticipated in setting of surgery hgb 11.8 --> 8.5 given hx of CAD would transfuse if hgb < 8 or becomes symptomatic Hemoglobin remains at 8.0 as of this morning We will check it again tomorrow and will not transfuse if it is not less than 8 Hemoglobin remained stable at more than 8 and today is 8.2 Hypocalcemia on bmp ca 7.8, need albumin to determine correction Ionized calcium was normal Elevated fasting glucose likely in setting of post op state pre op bsg WNL add a1c in a.m.-normal at 5.4 (2) CAD (coronary artery disease): No chest pain or shortness of breath, follows up with cardiology History of left circumflex and RADHA in 2012 On metoprolol, Ranexa, statin, lisinopril Per patient's cardiology notes he is also to be on aspirin, patient currently states he is not taking aspirin due to pill burden recommend resuming ASA when okay with Dr. Joseph No acute cardiac symptoms (3) Chronic anemia: hgb 11.8 likely 2/2 chronic disease acute blood loss as above (4) Hypertension: BP on lower side continue hold lisinopril/HCTZ continue metoprolol as parameters allow monitor closely (5) Chronic obstructive pulmonary disease: tobacco abuse continue advair ( breo substituted) encourage incentive spirometry nicotine patch ordered (6) Sleep apnea: CPAP @ [facility], [id number], pt brought home cpap Dispo: per primary PCP: Dr. Partida FULL CODE Medically stable to be discharged Admission and Anticipated Discharge Date Admission Date: November 24, 2020 Subjective 11-26-2020 The patient was seen and examined in medical floor Still complains to have some back pain and the ELIF drain has not been removed yet Has been getting physical therapy and plans for discharge tomorrow 11/27/2020 The patient was seen and examined in medical floor He still complains to have some pain at the back but awaiting to be discharged by the primary team Hemoglobin remains stable Review of Systems Review of Systems: All systems reviewed and are unremarkable except as noted below Musculoskeletal: + back pain Physical Exam Physical Exam: Gen: WD/WN, NAD, A&O x3 HEENT: Normocephalic, atraumatic, conjunctivae moist, sclerae anicteric, mucous membranes moist. Lung: Clear to Auscultation bilaterally, no wheezes/rales/rhonchi Heart: Regular rate, regular rhythm, no murmurs, rubs, or gallops Abdomen: Soft, NT, ND +BS x 4 Extremities: No edema, SCD/teds in place, lumbar dressing CDI, ELIF drain with serosanguineous drainage Skin: Warm, no rash, negative turgor. : Adames catheter with clear yellow urine Musculoskeletal: Spine: + limited thoraco-lumbar ROM and + pain with thoraco- lumbar ROM Results & Data Results & Data ([facility]) Vital Signs (Past 12 Hours) Vital Signs Temp Pulse Pulse Resp BP BP Pulse Ox 11/27/20 09:25 36.7 C 72 64 16 120/65 95 11/27/20 05:31 36.7 C 64 16 150/80 H 95 Laboratory Results Short CBC 11/27/20 Range/Units 07:47 WBC 10.41 (4.8-10.8) K/uL Hgb 8.2 L (14.0-18.0) g/dL Hct 24.0 L (42-52) % Plt Count 182 (130-400) K/uL Medications Administered Current Inpatient Medications Acetaminophen (Acetaminophen 500 Mg Tab) 1,000 mg PO Q8H PRN PRN Reason: MILD Pain Scale 1,2,3 & Pre PT Stop: 12/24/20 12:14 Last Admin: 11/25/20 07:35 Dose: 1,000 mg Documented by: Al Hydrox/Mg Hydrox/Simethicone (Aluminum/Magnesium Susp 30 Ml Udc) 30 ml PO Q6H PRN PRN Reason: Dyspepsia Stop: 12/24/20 12:14 Albuterol (Albuterol Hfa 8 Gm Inhaler) 1 puffs INH QID PRN PRN Reason: sob Stop: 12/24/20 12:14 Atorvastatin Calcium (Atorvastatin 40 Mg Tab) 40 mg PO HS [facility] Stop: 12/24/20 20:59 Last Admin: 11/26/20 20:29 Dose: 40 mg Documented by: Bisacodyl (Bisacodyl 10 Mg Supp) 10 mg RI DAILY PRN PRN Reason: Constipation Stop: 12/26/20 07:59 Bupropion HCl (Bupropion Sr 100 Mg Tabcr) [address] [facility] Stop: 12/25/20 08:59 Last Admin: 11/27/20 07:35 Dose: 200 mg Documented by: Diphenhydramine HCl (Diphenhydramine Capsule 25 Mg Cap) 25 mg PO Q6H PRN PRN Reason: Allergic Rhinitis/Insomnia Stop: 12/24/20 12:14 Famotidine (Famotidine 20 Mg Tab) [address] [facility] Stop: 12/24/20 20:59 Last Admin: 11/27/20 07:35 Dose: 20 mg Documented by: Famotidine (Famotidine 20 Mg Tab) 20 mg PO Q12H PRN PRN Reason: Dyspepsia Stop: 12/24/20 12:14 Ferrous Sulfate (Ferrous Sulfate 325 Mg Tab) 325 mg PO [facility] Stop: 12/26/20 08:59 Last Admin: 11/27/20 07:37 Dose: 325 mg Documented by: Fluticasone/Vilanterol (Fluticasone/Vilanterol 100/25mcg 14 Puffs/Inhaler) [address] [facility] Stop: 12/25/20 08:59 Last Admin: 11/27/20 07:34 Dose: 1 puffs Documented by: Lisinopril/HCTZ (Lisinopril/Hctz 10/12.5mg Tab) [facility] [place] [place] Stop: 12/25/20 08:59 Hydromorphone HCl (Hydromorphone Inj 0.5 Mg/0.5 Ml Syr) 0.5 mg IV Q3H PRN PRN Reason: MOD pain (scale 4-6) & Pre PT Stop: 12/08/20 12:14 Hydromorphone HCl (Hydromorphone Inj 1 Mg/Ml Syringe) 1 mg IV Q3H PRN PRN Reason: severe pain (scale 7-10) Stop: 12/08/20 12:14 Last Admin: 11/27/20 05:24 Dose: 1 mg Documented by: Hydroxyzine HCl (Hydroxyzine Hcl 25 Mg Tab) 25 mg PO Q8H PRN PRN Reason: Anxiety Stop: 12/24/20 12:14 Promethazine HCl 12.5 mg/ (Sodium Chloride) 50.5 mls @ 202 mls/hr IV Q6H PRN PRN Reason: Nausea &/or Vomiting Stop: 12/24/20 12:14 Lorazepam (Ativan) 0.5 mg in 1 mls @ 1 mls/min IV Q8H PRN PRN Reason: Sedation/Anxiety Stop: 12/24/20 12:14 Dexamethasone 8 mg/ Syringe 2 mls @ 1 mls/min IV DAILY [facility] Stop: 12/26/20 08:59 Last Admin: 11/27/20 07:33 Dose: 1 mls/min Documented by: Influenza Virus Vaccine Quadrival (Do Not Administer Flu Vaccine) 1 ea N/A PRN PRN PRN Reason: Notification Stop: 12/24/20 12:14 Lorazepam (Lorazepam 0.5 Mg Tab) 0.5 mg PO Q8H PRN PRN Reason: sedation/anxiety Stop: 12/24/20 12:14 Magnesium Hydroxide (Magnesium Hydroxide Susp 30 Ml Udc) 30 ml PO Q24H PRN PRN Reason: Constipation Stop: 12/24/20 12:14 Magnesium Oxide (Magnesium Oxide 400 Mg Tab) [address] [facility] Stop: 12/25/20 08:59 Last Admin: 11/27/20 07:37 Dose: 400 mg Documented by: Metoclopramide HCl (Metoclopramide Hcl Inj 5 Mg/Ml 2 Ml Vial) 10 mg IV Q6H PRN PRN Reason: Nausea &/or Vomiting Stop: 12/24/20 12:14 Metoprolol Tartrate (Metoprolol Tartrate 25 Mg Tab) [address] [facility] Stop: 12/24/20 20:59 Last Admin: 11/27/20 07:34 Dose: 25 mg Documented by: Miscellaneous (Remove Nicoderm Patch) 1 ea N/A DAILY@8017 [facility] Stop: 12/25/20 16:58 Last Admin: 11/26/20 16:48 Dose: 1 ea Documented by: Miscellaneous Medication (Medical Marijuana) [address] [facility] Stop: 12/24/20 13:14 Naloxone HCl (Naloxone Hcl 0.4 Mg/1 Ml Vial/Carp) 0.1 mg IV Q5M PRN PRN Reason: Oversedation/respiratory dep Stop: 12/24/20 12:14 Nicotine (Nicotine 21 Mg/24 Hr Tdsy) 21 mg TD DAILY@1700 [facility] Stop: 12/24/20 16:59 Last Admin: 11/26/20 16:48 Dose: 21 mg Documented by: Ondansetron HCl (Ondansetron Inj 2 Mg/Ml 2 Ml Vial) 4 mg IV Q6H PRN PRN Reason: Nausea &/or Vomiting Stop: 12/24/20 12:14 Ondansetron HCl (Ondansetron 4 Mg Od Tab) 4 mg PO Q6H PRN PRN Reason: Nausea Stop: 12/24/20 12:14 Oxycodone HCl (Oxycodone Hcl Ir 5 Mg Tab (Immediate Release)) 5 - 10 mg PO Q4H PRN PRN Reason: Pain & Pre PT Stop: 12/08/20 12:14 Last Admin: 11/27/20 14:01 Dose: 10 mg Documented by: Pantoprazole Sodium (Pantoprazole 40 Mg Tab) [address] [facility] Stop: 12/24/20 20:59 Last Admin: 11/27/20 07:37 Dose: 40 mg Documented by: Pneumococcal Polyvalent Vaccine (Do Not Administer Pneumococcal Vaccine) 1 ea N/A PRN PRN PRN Reason: Notification Stop: 12/24/20 12:14 Potassium Chloride (Potassium Chloride Crtab 20 Meq Tabcr) [address] [facility] Stop: 12/25/20 08:59 Last Admin: 11/27/20 07:35 Dose: 20 meq Documented by: Ranolazine (Ranolazine 500 Mg Er Tab) [address] [facility] Stop: 12/24/20 20:59 Last Admin: 11/27/20 07:36 Dose: 500 mg Documented by: Senna/Docusate Sodium (Docusate Sodium/Senna 50/8.6mg Tab) [address] [facility] Stop: 12/24/20 20:59 Last Admin: 11/26/20 20:28 Dose: 2 tab Documented by: Sertraline HCl (Sertraline Hcl 100 Mg Tablet) [address] [facility] Stop: 12/25/20 08:59 Last Admin: 11/27/20 07:35 Dose: 100 mg Documented by: Sodium Biphosphate/Sodium Phosphate (Sod Phosphate/Sod Biphosphate Enema 132 Ml Btl) 132 ml RI ONE PRN PRN Reason: Constipation Stop: 12/24/20 12:14 Tramadol HCl (Tramadol Hcl 50 Mg Tablet) 50 - 100 mg PO Q4H PRN PRN Reason: Moderate-Severe pain & Pre PT Stop: 12/24/20 12:14 Last Admin: 11/27/20 10:13 Dose: 100 mg Documented by: Umeclidinium [place] (Umeclidinium [place] 62.5mcg/Blister 7 Puffs/Inhaler) 1 puffs INH QAM [facility] Stop: 12/25/20 08:59 Last Admin: 11/27/20 07:34 Dose: 1 puffs Documented by:
[2020-11-27] MEDS: ACETAMINOPHEN 500 MG TAB PO PRN (15:19)
[2020-11-27] MEDS: NICOTINE 21 MG/24 HR TDSY TD SCH (16:49)
== END 2020-11-27 18:44 | disposition home health service (06) | DRG 454 ==
LOC: ASU 06:49 → 3E 11:23